=== PATIENT | female | born 1975 | race African-American/Black ===

== ENCOUNTER 2020-04-29 10:23 | Outpatient (CLI) | payer OTHER, SELFPAY ==
[2020-04-29 10:44] LABS: Hematocrit 37.9 % (37.0-47.0); Hemoglobin 12.4 g/dL (12.0-15.0); Mean Corpuscular HGB Conc 32.7 g/dl (32-36); Mean Corpuscular Hemoglobin 29.5 pg (26-34); Mean Platelet Volume 9.5 fl (7.4-10.4); Platelet Count Result 263 k/mm3 (150-375); Red Blood Count 4.21 M/mm3 (4.2-5.4); Red Cell Distribution Width 13.7 % (11.5-14.5); White Blood Count 4.9 K/mm3 (4.5-10.0)
== END 2020-04-29 10:24 | disposition home or self-care (01) ==
PROVIDERS: Visit Provider Internal Medicine Critical Care Medicine
DX: D64.9 Anemia, unspecified (principal); G47.10 Hypersomnia, unspecified
CPT/HCPCS: 36415; 82728; 85027

== ENCOUNTER → 2020-06-01 01:01 | Outpatient (CLI) | payer OTHER, SELFPAY ==
[2020-06-01 19:08] LABS: SARS-CoV-2 RNA PCR Negative
== END ==
PROVIDERS: Visit Provider Internal Medicine Critical Care Medicine
DX: Z01.812 Encounter for preprocedural laboratory examination (principal); Z20.822 Contact with and (suspected) exposure to COVID-19
CPT/HCPCS: C9803; U0003; U0005

== ENCOUNTER 2020-06-03 09:07 | Outpatient (CLI) | payer OTHER, SELFPAY ==
--- NOTE | 2020-06-25 14:51 | WPDSLEEPSTUD ---
Sleep Study Ordering Provider: Leah Marlow MD Interpreting Physician: Leah Marlow MD Sleep Study Type: Polysomnogram Height: 1.63 m Weight: 90.718 kg Body Mass Index: 34.3 Neck Circumference (inches): 13 [place]: 21 Reason for Sleep Study Excessive daytime sleepiness Sleep History Allen Jane is a 45 year old female with excessive fatigue and sleepiness during the day. This has been going on for about 20 years. It has been worse in the last 10 years. She had a sleep study about 8 years ago. There is a positive family history of sleep issues with her brother and aunt having sleep disorders. She constantly snores loudly enough that others complain about it. She occasionally awakens at night with heartburn, belching or coughing. She does not awaken from sleep feeling short of breath. She does not have trouble sleep with a cold. She does not wake up gasping for breath at night. She frequently has breathing problems at night observed by others. She rarely sweats excessively night. She occasionally notices her heart pounding or beating irregularly night. She frequently falls asleep during the day, frequently involuntarily and frequently while driving. She does not fall asleep during physical effort. She does not have loss of muscle tone was strong emotion. She does not have daytime difficulties due to excessive sleepiness, worls in the . works in the . She occasionally feels paralyzed on waking or falling asleep and occasionally has vivid dreamlike scenes upon awakening or falling asleep. She does not feel afraid to go to sleep. She does not have nightmares. She rarely remembers her dreams. She constantly has racing thoughts. She occasionally feels sad or depressed. She frequently has anxiety. She does not notice parts of her body jerking. She does not have morning jaw pain. She constantly grinds her teeth at night. She is not bothered by pain during the day nor she awakened by pain at night. She occasionally wakes up feeling stiff in the morning but does not wake up with sore achy muscles are pain in the neck and spine. She has headaches, fatigue and she takes antacids regularly. Normal bedtime is 10:00 p.m. falling asleep within 5-10 minutes, waking 1-2 times to urinate, returning to sleep within 5 minutes. She does not usually take naps. A short nap is not refreshing. She is usually drowsy in the morning. She reports a 10 lb weight gain in the last year. Habits: She has never smoked tobacco. Caffeine 1-2 servings a day. No alcohol or recreational drugs. [facility] Past Medical History Medical History Anemia Anisometropia Arcus senilis Arthralgia of ankle or foot, left Astigmatism Chronic GERD Corneal scar, right eye Headache syndrome Hypermetropia Hypertension Lumbago with sciatica, unspecified side Myopia Onychomycosis Ovarian cyst Pes planus Plantar fasciitis Preeclampsia RLS (restless legs syndrome) Shoulder pain, right Sleep disorder TMJ arthritis Surgical History Surgical History Encounter for IUD insertion H/O breast surgery History of tonsillectomy Family History Family History Grandparent Breast cancer Hypertension Mother Breast cancer Hypertension Kidney disease Grandparent Malignant neoplasm of prostate Hypertension Father Malignant neoplasm of prostate Hypertension Social History Social History Smoking status: Never smoker Medications Home Medications Medication Instructions Recorded Confirmed Type cetirizine 10 mg capsule 10 mg PO DAILY PRN 04/29/20 History omeprazole 40 mg capsule,delayed 40 mg PO DAILY 04/29/20 History release Sleep Procedure This test was performed using the [facility]
[2020-06-25 15:05] VITALS: BMI 34.3
== END 2020-06-03 09:08 | disposition home or self-care (01) ==
LOC: ANHCSM 09:07
PROVIDERS: Visit Provider Internal Medicine Critical Care Medicine
DX: G47.30 Sleep apnea, unspecified (principal); G47.33 Obstructive sleep apnea (adult) (pediatric)
CPT/HCPCS: 95810; 95811

== ENCOUNTER 2021-03-15 07:40 | Outpatient (CLI) | payer OTHER, SELFPAY ==
--- NOTE | 2021-04-04 17:53 | WPDSLEEPSTUD ---
Sleep Study Date of Study: 03/15/21 <Halle Serrano DO - Last Filed: 04/04/21 18:14> Ordering Provider: Leah Marlow MD <Halle Serrano DO - Last Filed: 04/04/21 18:14> Interpreting Physician: Halle Serrano DO <Halle Serrano DO - Last Filed: 04/04/21 18:14> Sleep Study Type: CPAP Titration <Halle Serrano DO - Last Filed: 04/04/21 18:14> Height: 1.63 m <Halle Serrano DO - Last Filed: 04/04/21 18:14> Weight: 90.718 kg <Halle Serrano DO - Last Filed: 04/04/21 18:14> Body Mass Index: 34.3 <Halle Serrano DO - Last Filed: 04/04/21 18:14> Neck Circumference (inches): 16 <Halle Serrano DO - Last Filed: 04/04/21 18:14> [place]: 19 <Halle Serrano DO - Last Filed: 04/04/21 18:14> Reason for Sleep Study Daytime hypersomnia despite being compliant with PAP Therapy <Halle Serrano DO - Last Filed: 04/04/21 18:14> Sleep History The patient is a 45-year-old female with ELIGIO on CPAP, anemia, GERD, hypertension, 1 Law ago with sciatica, RLS and TMJ arthritis and had a PSG on CPAP and a 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 The patient is currently on CPAP 10 cm with an EPR of 2. She had a sleep study about 8 years ago. There is a positive family history of sleep issues with her brother and aunt having sleep disorders. She constantly snores loudly enough that others complain about it. She occasionally awakens at night with heartburn, belching or coughing. She does not awaken from sleep feeling short of breath. She does not have trouble sleep with a cold. She does not wake up gasping for breath at night. She frequently has breathing problems at night observed by others. She rarely sweats excessively night. She occasionally notices her heart pounding or beating irregularly night. She frequently falls asleep during the day, frequently involuntarily and frequently while driving. She does not fall asleep during physical effort. She does not have loss of muscle tone was strong emotion. She does not have daytime difficulties due to excessive sleepiness, worls in the . works in the . She occasionally feels paralyzed on waking or falling asleep and occasionally has vivid dreamlike scenes upon awakening or falling asleep. She does not feel afraid to go to sleep. She does not have nightmares. She rarely remembers her dreams. She constantly has racing thoughts. She occasionally feels sad or depressed. She frequently has anxiety. She does not notice parts of her body jerking. She does not have morning jaw pain. She constantly grinds her teeth at night. She is not bothered by pain during the day nor she awakened by pain at night. She occasionally wakes up feeling stiff in the morning but does not wake up with sore achy muscles are pain in the neck and spine. She has headaches, fatigue and she takes antacids regularly. Normal bedtime is 10:00 p.m. falling asleep within 5-10 minutes, waking 1-2 times to urinate, returning to sleep within 5 minutes. She does not usually take naps. A short nap is not refreshing. She is usually drowsy in the morning. She reports a 10 lb weight gain in the last year. Habits: She has never smoked tobacco. Caffeine 1-2 servings a day. No alcohol or recreational drugs. <Halle Serrano DO - Last Filed: 04/04/21 18:14> [facility] Past Medical History Medical History: Medical History Anemia Anisometropia Arcus senilis Arthralgia of ankle or foot, left Astigmatism Chronic GERD Corneal scar, right eye Headache syndrome Hypermetropia Hypertension Lumbago with sciatica, unspecified side Myopia Onychomycosis Ovarian cyst Pes planus Plantar fasciitis Preeclampsia RLS (restless legs syndrome) Shoulder pain, right Sleep disorder TMJ arthritis
[2021-04-04 17:54] VITALS: BMI 34.3
--- NOTE | 2021-04-04 18:14 | WPDSLEEPSTUD ---
Sleep Study Date of Study: 03/15/21 <Halle Serrano DO - Last Filed: 04/04/21 18:26> Ordering Provider: Leah Marlow MD <Halle Serrano DO - Last Filed: 04/04/21 18:26> Interpreting Physician: Halle Serrano DO <Halle Serrano DO - Last Filed: 04/04/21 18:26> Sleep Study Type: Multiple Sleep Latency Test <Halle Serrano DO - Last Filed: 04/04/21 18:26> Height: 1.63 m <Halle Serrano DO - Last Filed: 04/04/21 18:26> Weight: 90.718 kg <Halle Serrano DO - Last Filed: 04/04/21 18:26> Body Mass Index: 34.3 <Halle Serrano DO - Last Filed: 04/04/21 18:26> Neck Circumference (inches): 16 <Halle Serrano DO - Last Filed: 04/04/21 18:26> [place]: 19 <Halle Serrano DO - Last Filed: 04/04/21 18:26> Reason for Sleep Study Hypersomnia despite being compliant with PAP Therapy. <Halle Serrano DO - Last Filed: 04/04/21 18:26> Sleep History Please see sleep history on PSG report. <Halle Serrano DO - Last Filed: 04/04/21 18:26> [facility] Past Medical History Medical History: Medical History Anemia Anisometropia Arcus senilis Arthralgia of ankle or foot, left Astigmatism Chronic GERD Corneal scar, right eye Headache syndrome Hypermetropia Hypertension Lumbago with sciatica, unspecified side Myopia Onychomycosis Ovarian cyst Pes planus Plantar fasciitis Preeclampsia RLS (restless legs syndrome) Shoulder pain, right Sleep disorder TMJ arthritis <Halle Serrano DO - Last Filed: 04/04/21 18:26> Surgical History Surgical History: Surgical History Encounter for IUD insertion H/O breast surgery History of tonsillectomy <Halle Serrano DO - Last Filed: 04/04/21 18:26> Family History Family History: Family History Grandparent Breast cancer Hypertension Mother Breast cancer Hypertension Kidney disease Grandparent Malignant neoplasm of prostate Hypertension Father Malignant neoplasm of prostate Hypertension <Halle Serrano DO - Last Filed: 04/04/21 18:26> Social History Social History: Social History Smoking status: Never smoker <Halle Serrano DO - Last Filed: 04/04/21 18:26> Medications Home Medications: Home Medications Medication Instructions Recorded Confirmed Type cetirizine 10 mg capsule 10 mg PO DAILY PRN 04/29/20 History omeprazole 40 mg capsule,delayed 40 mg PO DAILY 04/29/20 History release biotin 1 mg capsule 1 mg PO DAILY 07/13/20 History [id number]-minerals 27 tablet PO 07/13/20 History mg-0.4 mg tablet psyllium husk 0.52 gram capsule 0.52 g PO DAILY 07/13/20 History <Halle Serrano DO - Last Filed: 04/04/21 18:26> Sleep Procedure The patient had a daytime sleep latency and REM latency test. <Halle Serrano DO - Last Filed: 04/04/21 18:26> Sleep Architecture Nap 1: Sleep onset of 7 minutes 57 seconds. No SOREM Nap 2: Sleep onset of 2 minutes 50 seconds. No SOREM. Nap 3: Sleep onset of 2 minutes 58 seconds. No SOREM. Nap 4: Sleep onset of 1 minute 55 seconds. No SOREM. REM Latency of 15 minutes. Nap 5: Sleep onset of 6 minutes 28 seconds. No SOREM. The average sleep latency was 4 minutes 26 seconds. No SOREMs on the PSG on PAP or on MSLT. <Halle Serrano DO - Last Filed: 04/04/21 18:26> Respiratory Analysis N/A <Halle Serrano, DO - Last Filed: 04/04/21 18:26> [place] N/A <Halle Serrano, DO - Last Filed: 04/04/21 18:26> Periodic Limb Movements N/A <Halle Serrano, DO - Last Filed: 04/04/21 18:26> Oximetry Data N/A <Halle Serrano, DO - Last Filed:
[2021-04-04 18:26] VITALS: BMI 34.3
== END 2021-03-16 16:50 | disposition home or self-care (01) ==
LOC: ANHCSM 07:42
PROVIDERS: Visit Provider Internal Medicine Critical Care Medicine
DX: G47.33 Obstructive sleep apnea (adult) (pediatric) (principal); G47.10 Hypersomnia, unspecified
CPT/HCPCS: 95811